=== PATIENT | female | born 1955 | race Hispanic/Latino ===

== ENCOUNTER 2019-03-17 22:24 | Emergency (ER) | payer SELFPAY ==
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
[2019-03-18] MEDS ORDERED: KETOROLAC 30 MG/ML INJ ONE (00:31)
[2019-03-18] MEDS ORDERED: CYCLOBENZAPRINE 10 MG TAB ONE (00:43)
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
== END 2019-03-18 00:36 | disposition home or self-care (01) ==
LOC: ER 22:24
DX: S20.229A Contusion of unspecified back wall of thorax, initial encounter (principal); S30.0XXA Contusion of lower back and pelvis, initial encounter; V03.90XA Pedestrian on foot injured in collision with car, pick-up truck or van, unspecified whether traffic or nontraffic accident, initial encounter
CPT/HCPCS: 70450; 72125; 72128; 72170; 96372; 99284